=== PATIENT | female | born 1950 | race Caucasian/White ===

== ENCOUNTER 2016-11-09 17:42 | Emergency (ER) | payer MEDICARE, OTHER ==
[2014-07-14 14:16] VITALS: BMI 30.3
[~2016-11-09 17:42] MED LIST: ALBUTEROL0.63 MG/3 INH; ARMOUR THYROID60 M1 PO; CYCLOBENZAPRINE10 MG PO; DALIRESP500 MCG PO; ESTRADERM 0.10.1 MG TD; EXFORGE 5-160 M1 TAB PO; FIRST-PROG200 MG/SUP PO; GLUCOPHAGE500 MG PO; K-TAB10 MEQ PO; LASIX20 MG PO; LYRICA150 MG PO; MOBIC7.5 MG PO; NEXIUM40 MG PO; OXYBUTYNIN CHLOR5 MG PO; PERCOCET 10/3251 TA1; VENTOLIN HFA18 GM INH; ZOFRAN4 MG PO; ZYRTEC10 MG PO
[2016-11-09 19:10] LABS: BASOPHILS 0.1 % (0.0-2.0); EOSINOPHILS 0.1 % (0-7); HEMOGLOBIN 8.7 g/dL (12-16); IMMATURE GRANULOCYTES 1.8 % (0-5); MCH 22.8 pg (26.0-34.0); MCV 76.1 fL (80.0-100.0); MEAN PLATELET VOLUME 9.6 fL (7.4-10.4); MONOCYTES 6.4 % (2-11); NEUTROPHILS 81.6 % (40-80); RBC 3.81 10x6/uL (4.00-5.40); RDW 19.5 % (11.5-14.5); WBC 10.6 10x3/uL (4.8-10.8)
[2016-11-09 19:11] LABS: PLATELET COUNT 476 10x3/uL (130-400)
[2016-11-09 19:33] LABS: ALBUMIN 3.4 g/dL (3.4-5.0); ANION GAP 14.3 mmol/L (8-16); BILIRUBIN - TOTAL 0.2 mg/dL (0.2-1.3); CALCIUM 9.2 mg/dL (8.5-10.1); CARBON DIOXIDE 25.7 mmol/L (21.0-32.0); CREATININE - SERUM 1.2 mg/dL (0.6-1.3); PROTEIN - SERUM 6.5 g/dL (6.4-8.2)
[2016-11-09 20:52] LABS: AMYLASE - SERUM 86 U/L (25-115); CREATINE KINASE 40 UL (21-215); LIPASE 140 U/L (73-393); PRO BNP 267 pg/mL (0-125); THYROID STIMULATING HORMONE 0.01 uIU/mL (0.36-3.74); TROPONIN-I < 0.017 ng/mL (0.000-0.060)
== END 2016-11-09 21:28 | disposition home or self-care (01) ==
LOC: D.ER 17:42
PROVIDERS: Emergency Medicine; Family Medicine
DX: J44.1 Chronic obstructive pulmonary disease with (acute) exacerbation (principal); D64.9 Anemia, unspecified; K21.9 Gastro-esophageal reflux disease without esophagitis; I10 Essential (primary) hypertension; E87.6 Hypokalemia; E83.42 Hypomagnesemia; E03.9 Hypothyroidism, unspecified; E11.9 Type 2 diabetes mellitus without complications; K27.9 Peptic ulcer, site unspecified, unspecified as acute or chronic, without hemorrhage or perforation; M06.9 Rheumatoid arthritis, unspecified

== ENCOUNTER → 2017-03-24 14:31 | Outpatient (CLI) | payer MEDICARE ==
[2014-07-14 14:16] VITALS: BMI 30.3
== END | disposition home or self-care (01) ==
LOC: D.CT 14:30
DX: R05 Cough (principal)

== ENCOUNTER → 2017-04-19 13:36 | Outpatient (CLI) | payer MEDICARE, OTHER ==
[2014-07-14 14:16] VITALS: BMI 30.3
== END | disposition home or self-care (01) ==
LOC: D.MAMMO 10:45
DX: Z12.31 Encounter for screening mammogram for malignant neoplasm of breast (principal)

== ENCOUNTER 2018-06-15 15:05 | Inpatient (IN) | payer MEDICARE ==
[~2018-06-15] VITALS: Ht 144.8 cm; Wt 76.8 kg
[2018-06-15] VITALS (8 sets, daily range): BP systolic 99–145; BP diastolic 53–70; BMI 28.0
--- NOTE | ~2018-06-15 | OP ---
PATIENT NAME: MAGALI THOMPSON MEDICAL RECORD: [id number] :48 LOCATION:[id number] ADMISSION DATE:06/15/18 SURGEON: LEXIE PETERSON MD DATE OF OPERATION: 06/20/2018 PRINCIPAL DIAGNOSIS: Endoscopically unresectable cecal polyp. POSTOPERATIVE DIAGNOSES: Endoscopically unresectable cecal polyp with extensive intra-abdominal adhesions from a prior hernia repair. Also, the polypoid specimen was not present within the resected portions of the cecum. PROCEDURE: Attempted laparoscopic cecectomy with conversion to open right hemicolectomy through a mini laparotomy incision. SURGEON: Lexie Peterson MD [facility] AUTHOR: None. BLOOD LOSS: 100 cc. ANESTHESIA: General. COMPLICATIONS: None. The risks, possible complications and alternatives to the procedure were explained to the patient. She elects to proceed. The discussion specifically included, but was not limited to, bleeding requiring an emergency reoperation, infection, intestinal injury, clot, as well as a hernia occurrence. OPERATIVE COURSE: The patient was conveyed to the operating room electively on 06/20/2018. General anesthesia was induced by the anesthesia staff. The abdomen was sterilely prepped and draped. A small skin violet was accomplished in the left upper quadrant. A Veress needle was inserted through the skin violet into the peritoneal cavity. CO2 insufflation was begun. Once a sufficient pneumoperitoneum had been achieved, a 5-mm trocar was inserted through an incision in the right upper quadrant. I immediately identified that extensive adhesions were encountered. Two more 5-mm trocars were inserted in the right side of the abdomen. Utilizing the endoscopic morris as well as the endoscopic EnSeal device, I began taking down these adhesions to an omental patch. The adhesions consisted only of omental adhesions. I was able to take it down and the total adhesiolysis time was 25 minutes. I placed a 12-mm trocar through the incision at the umbilicus. There was no apparent injury to the bowels during this procedure. In order to facilitate more favorable approach to some of the adhesions, I placed two 5-mm trocars in the left side of the abdomen for a total of the 5-mm trocars. I incised along the right white line of Toldt. I folded the right colon medially. I took down some of the retroperitoneal attachments to the hepatic flexure. I mobilized the ileum with the endoscopic morris as there were some adhesions from the ileum to the pelvic side wall. At no time was there any injury to a major vascular structure or the right ureter. I was unable to identify an appendix. I grasped the cecum. I then stapled across the cecum utilizing an Endo-ONEL type stapler with a blue load. This portion of the cecum was then brought out through an endoscopic retrieval bag OPERATIVE REPORT [id number] MAGALI THOMPSON and I opened it up on the back table. I did not identify the polypoid specimen within this portion of the cecum. I then rerescrubbed and regowned. I then grasped the cecum and the colon laterally, across from the ileocecal valve. I then stapled across the colon here with the Endo-ONEL type stapler utilizing a blue load. I placed this within a bag retrieval device and withdrew it through the 12-mm trocar. I opened up the specimen on the back table. There was no polypoid specimen within the excised specimen. At this time, I elected to convert to an open procedure. Utilizing the Jens-Mariya suture closure device and 0 Vicryl suture, I closed the fascia at the 12-mm trocar site at the umbilicus. All the trocars were removed and the abdomen desufflated. A small incision was accomplished between the right costal margin and the anterior superior iliac spine on the right. Sharp transverse incision was accomplished through the skin and subcutaneous tissues. The external oblique aponeurosis was then opened along the direction of its fibers. I bluntly dissected down through the internal oblique and transversus abdominis muscles. The peritoneal cavity was entered sharply. I was able to deliver the ileum, right colon as well as the hepatic flexure of the transverse colon. I chose the extent of my resection to be in the distal ileum. A window was created in the mesentery of the small bowel. I stapled across the distal ileum with a ONEL-75 stapler. I then created a window in the mesentery of the proximal transverse colon. I stapled across the transverse colon with a ONEL-75 stapler. I then swept down the right ureter. I swept down the duodenum. At no time was there any apparent injury to the duodenum or the right ureter. The interpose mesentery between the enterotomy and the colotomy was taken down with the laparoscopic EnSeal device. The specimen was then sent to pathology after being opened on the back table. After opening it up on the back table, it appeared that the polyp was within this excised specimen. I placed the small bowel and transverse colon into apposition side by side and kept them in place with a row of 3-0 Vicryl sutures. A small enterotomy and small colotomy were accomplished. I advanced anvils of the ONEL-75 stapler and then fired. The resulting enterocolonic defect was closed with a single firing of the TA 60 stapler. The mesenteric rent was closed with a running #1 Vicryl. I irrigated and aspirated. The Austin retractor, which had been placed earlier through the mini laparotomy incision, was removed. Anastomosis was returned to the intra-abdominal compartment. I irrigated and aspirated in the right upper quadrant. There was no bleeding. The internal oblique and transversus abdominis muscles were closed with running #1 Vicryls. The external oblique aponeurosis was closed with a running #1 Vicryl. The subcutaneous tissues at the main operative site was closed with interrupted 3-0 Vicryls. The skin in the right upper quadrant incision was closed with a running intracuticular 3-0 Vicryl. The skin at the umbilicus was closed with interrupted 4-0 Vicryl Rapide sutures. The other trocar sites were closed with interrupted intracuticular 3-0 Vicryls. Benzoin and Steri-Strips were applied. The patient was then extubated and conveyed to the post-anesthesia care unit where she was in stable condition. TRANSINT:[id number] Voice Confirmation ID: [id number] DOCUMENT ID: [id number] OPERATIVE REPORT [id number] AMGALI THOMPSON, LEXIE MCKEON at 1717 CC: JIHAN MARQUEZ MD, AMENA FERGUSON and ERIN NAIR MD [id number] DICTATION DATE: 06/23/182303 YARN WEIGHER: 06/23/18 9837 ADM IN [place] [id number] [place] [id number]
[2018-06-15 15:48] LABS: BASOPHILS 0 % (0-2); EOSINOPHILS 0.1 % (0-7); HEMOGLOBIN 8.1 g/dL (12-16); MCHC 32.4 g/dL (31.0-37.0); MEAN PLATELET VOLUME 8.9 fL (7.4-10.4); MONOCYTES 4.3 % (2-11); NEUTROPHILS 81.6 % (40-80); RBC 3.52 10x6/uL (4.00-5.40); RDW 17.6 % (11.5-14.5); WBC 7.9 10x3/uL (4.8-10.8)
[2018-06-15 15:49] LABS: PLATELET COUNT 307 10x3/uL (130-400)
[2018-06-15 16:06] LABS: ALBUMIN 3.4 g/dL (3.4-5.0); ANION GAP 11.2 mmol/L (8-16); BILIRUBIN - TOTAL 0.18 mg/dL (0.2-1.3); CALCIUM 8.2 mg/dL (8.5-10.1); CARBON DIOXIDE 28.1 mmol/L (21.0-32.0); CREATININE - SERUM 1.6 mg/dL (0.6-1.3); POTASSIUM - SERUM 4.3 mmol/L (3.5-5.1); PROTEIN - SERUM 6.8 g/dL (6.4-8.2)
[2018-06-16] VITALS (23 sets, daily range): BP systolic 95–156; BP diastolic 45–95; BMI 36.6
[2018-06-16 05:11] LABS: APTT 28.7 SECONDS (22.8-39.4); INR 1.03 (0.85-1.17); PROTIME 13.1 SECONDS (11.6-15.0)
[2018-06-16 05:15] LABS: BASOPHILS 0.1 % (0-2); IMMATURE GRANULOCYTES 0.8 % (0-5); LYMPHOCYTES 33.4 % (15-50); MCH 25.3 pg (26.0-34.0); MCHC 33.5 g/dL (31.0-37.0); MEAN PLATELET VOLUME 9.3 fL (7.4-10.4); MONOCYTES 11.3 % (2-11); NEUTROPHILS 52.4 % (40-80); PLATELET COUNT 256 10x3/uL (130-400); RBC 4.19 10x6/uL (4.00-5.40); RDW 18.4 % (11.5-14.5); WBC 7.5 10x3/uL (4.8-10.8)
[2018-06-16 05:21] LABS: HEMATOCRIT 31.6 % (36.0-48.0); HEMOGLOBIN 10.6 g/dL (12-16); MCV 75.4 fL (80.0-100.0)
[2018-06-16 05:40] LABS: ANION GAP 10.8 mmol/L (8-16); BILIRUBIN - TOTAL 0.31 mg/dL (0.2-1.3); CREATININE - SERUM 1.3 mg/dL (0.6-1.3); POTASSIUM - SERUM 3.8 mmol/L (3.5-5.1); PROTEIN - SERUM 6.3 g/dL (6.4-8.2); T4 THYROXIN - FREE 0.77 ng/dL (0.76-1.46); THYROID STIMULATING HORMONE 0.13 uIU/mL (0.36-3.74)
[2018-06-16 13:09] LABS: HEMATOCRIT 33.6 % (36.0-48.0)
[2018-06-17] VITALS (18 sets, daily range): BP systolic 90–150; BP diastolic 56–105
[2018-06-17 04:03] LABS: BASOPHILS 0.1 % (0-2); EOSINOPHILS 2.8 % (0-7); HEMATOCRIT 32.9 % (36.0-48.0); HEMOGLOBIN 10.6 g/dL (12-16); IMMATURE GRANULOCYTES 0.6 % (0-5); LYMPHOCYTES 25.2 % (15-50); MCH 24.2 pg (26.0-34.0); MCHC 32.2 g/dL (31.0-37.0); MCV 75.1 fL (80.0-100.0); MEAN PLATELET VOLUME 9.5 fL (7.4-10.4); MONOCYTES 13.5 % (2-11); NEUTROPHILS 57.8 % (40-80); PLATELET COUNT 247 10x3/uL (130-400); RBC 4.38 10x6/uL (4.00-5.40); RDW 18.6 % (11.5-14.5); WBC 8.5 10x3/uL (4.8-10.8)
[2018-06-17 04:18] LABS: ALBUMIN 2.9 g/dL (3.4-5.0); ANION GAP 13.5 mmol/L (8-16); BILIRUBIN - TOTAL 0.24 mg/dL (0.2-1.3); CALCIUM 7.8 mg/dL (8.5-10.1); CARBON DIOXIDE 25.2 mmol/L (21.0-32.0); POTASSIUM - SERUM 3.7 mmol/L (3.5-5.1); PROTEIN - SERUM 6.2 g/dL (6.4-8.2)
[2018-06-18 04:51] VITALS: BP 99/56
[2018-06-18 06:06] LABS: BASOPHILS 0.1 % (0-2); EOSINOPHILS 1.7 % (0-7); HEMATOCRIT 34.9 % (36.0-48.0); HEMOGLOBIN 11.3 g/dL (12-16); IMMATURE GRANULOCYTES 0.3 % (0-5); LYMPHOCYTES 12.4 % (15-50); MCH 24.7 pg (26.0-34.0); MCHC 32.4 g/dL (31.0-37.0); MCV 76.2 fL (80.0-100.0); MONOCYTES 9.9 % (2-11); NEUTROPHILS 75.6 % (40-80); PLATELET COUNT 237 10x3/uL (130-400); RBC 4.58 10x6/uL (4.00-5.40); RDW 19.5 % (11.5-14.5)
[2018-06-18 06:07] LABS: WBC 15.9 10x3/uL (4.8-10.8)
[2018-06-18 06:32] LABS: ALBUMIN 3.1 g/dL (3.4-5.0); ANION GAP 12.4 mmol/L (8-16); BILIRUBIN - TOTAL 0.33 mg/dL (0.2-1.3); CALCIUM 8.3 mg/dL (8.5-10.1); CARBON DIOXIDE 27.1 mmol/L (21.0-32.0); CREATININE - SERUM 1.1 mg/dL (0.6-1.3); POTASSIUM - SERUM 3.5 mmol/L (3.5-5.1); PROTEIN - SERUM 6.3 g/dL (6.4-8.2)
[2018-06-18 08:07] VITALS: BP 108/53
[2018-06-18 12:32] VITALS: BP 130/55
[2018-06-18 12:46] VITALS: Ht 144.8 cm; Wt 76.8 kg
[2018-06-18 16:31] VITALS: BP 124/69
[2018-06-19 06:02] VITALS: BP 93/51
[2018-06-19 06:14] LABS: BASOPHILS 0.2 % (0-2); EOSINOPHILS 3.3 % (0-7); HEMATOCRIT 31.4 % (36.0-48.0); HEMOGLOBIN 10.5 g/dL (12-16); IMMATURE GRANULOCYTES 0.2 % (0-5); LYMPHOCYTES 14.9 % (15-50); MCH 25.1 pg (26.0-34.0); MCHC 33.4 g/dL (31.0-37.0); MCV 75.1 fL (80.0-100.0); MEAN PLATELET VOLUME 9.2 fL (7.4-10.4); NEUTROPHILS 68.4 % (40-80); PLATELET COUNT 228 10x3/uL (130-400); RBC 4.18 10x6/uL (4.00-5.40); RDW 19.6 % (11.5-14.5)
[2018-06-19 06:19] LABS: WBC 8.9 10x3/uL (4.8-10.8)
[2018-06-19 06:41] LABS: ALBUMIN 2.7 g/dL (3.4-5.0); BILIRUBIN - TOTAL 0.24 mg/dL (0.2-1.3); CARBON DIOXIDE 24.7 mmol/L (21.0-32.0); CREATININE - SERUM 1.1 mg/dL (0.6-1.3); PROTEIN - SERUM 6.3 g/dL (6.4-8.2)
[2018-06-19 07:27] LABS: ANION GAP 15.2 mmol/L (8-16); POTASSIUM - SERUM 2.9 mmol/L (3.5-5.1)
[2018-06-19 08:23] VITALS: BP 108/58
[2018-06-19 11:28] VITALS: BP 108/56
[2018-06-19 14:23] LABS: ERYTHROPOIETIN 8.5 mIU/mL (2.6-18.5)
[2018-06-19 15:54] VITALS: BP 107/46
[2018-06-20] VITALS (11 sets, daily range): BP systolic 98–129; BP diastolic 50–60
[2018-06-20 07:10] LABS: BASOPHILS 0.3 % (0-2); EOSINOPHILS 4.6 % (0-7); HEMATOCRIT 33.5 % (36.0-48.0); HEMOGLOBIN 10.7 g/dL (12-16); IMMATURE GRANULOCYTES 0.3 % (0-5); LYMPHOCYTES 23.8 % (15-50); MCH 24.5 pg (26.0-34.0); MCHC 31.9 g/dL (31.0-37.0); MCV 76.8 fL (80.0-100.0); MEAN PLATELET VOLUME 9.6 fL (7.4-10.4); MONOCYTES 16.9 % (2-11); NEUTROPHILS 54.1 % (40-80); PLATELET COUNT 227 10x3/uL (130-400); RBC 4.36 10x6/uL (4.00-5.40); RDW 20.3 % (11.5-14.5); WBC 6.9 10x3/uL (4.8-10.8)
[2018-06-20 07:49] LABS: ALBUMIN 2.7 g/dL (3.4-5.0); ANION GAP 15.7 mmol/L (8-16); BILIRUBIN - TOTAL 0.19 mg/dL (0.2-1.3); CALCIUM 8.5 mg/dL (8.5-10.1); CARBON DIOXIDE 24.2 mmol/L (21.0-32.0); POTASSIUM - SERUM 3.9 mmol/L (3.5-5.1); PROTEIN - SERUM 6.5 g/dL (6.4-8.2)
[2018-06-21] VITALS (8 sets, daily range): BP systolic 97–131; BP diastolic 47–68
[2018-06-21 05:26] LABS: BASOPHILS 0.1 % (0-2); EOSINOPHILS 0 % (0-7); HEMOGLOBIN 10.6 g/dL (12-16); IMMATURE GRANULOCYTES 0.3 % (0-5); LYMPHOCYTES 1.4 % (15-50); MCH 24.7 pg (26.0-34.0); MCHC 32.1 g/dL (31.0-37.0); MCV 76.9 fL (80.0-100.0); MEAN PLATELET VOLUME 9.4 fL (7.4-10.4); MONOCYTES 3.9 % (2-11); NEUTROPHILS 94.3 % (40-80); PLATELET COUNT 234 10x3/uL (130-400); RBC 4.29 10x6/uL (4.00-5.40); RDW 20.5 % (11.5-14.5); WBC 19.3 10x3/uL (4.8-10.8)
[2018-06-21 05:48] LABS: ANION GAP 17.9 mmol/L (8-16); CALCIUM 8.2 mg/dL (8.5-10.1); CARBON DIOXIDE 21.4 mmol/L (21.0-32.0); CREATININE - SERUM 1.1 mg/dL (0.6-1.3); POTASSIUM - SERUM 4.3 mmol/L (3.5-5.1)
[2018-06-22] MEDS ORDERED: BENADRYL25 MG PO (02:16)
[2018-06-22 04:00] VITALS: BP 90/40
[2018-06-22 06:26] LABS: BASOPHILS 0.1 % (0-2); EOSINOPHILS 0.4 % (0-7); HEMATOCRIT 29.2 % (36.0-48.0); HEMOGLOBIN 9.4 g/dL (12-16); IMMATURE GRANULOCYTES 0.2 % (0-5); LYMPHOCYTES 14.9 % (15-50); MCH 24.9 pg (26.0-34.0); MCHC 32.2 g/dL (31.0-37.0); MCV 77.5 fL (80.0-100.0); MEAN PLATELET VOLUME 9.6 fL (7.4-10.4); MONOCYTES 13.7 % (2-11); NEUTROPHILS 70.7 % (40-80); PLATELET COUNT 220 10x3/uL (130-400); RBC 3.77 10x6/uL (4.00-5.40); RDW 21.1 % (11.5-14.5)
[2018-06-22 06:27] LABS: WBC 12.1 10x3/uL (4.8-10.8)
[2018-06-22 06:36] LABS: CALCIUM 8.1 mg/dL (8.5-10.1); CARBON DIOXIDE 24.2 mmol/L (21.0-32.0); CREATININE - SERUM 1.2 mg/dL (0.6-1.3); POTASSIUM - SERUM 4.2 mmol/L (3.5-5.1)
[2018-06-22 08:24] VITALS: BP 133/55
[2018-06-22 13:46] VITALS: BP 143/55
[2018-06-22 20:55] VITALS: BP 102/46
[2018-06-23 04:40] VITALS: BP 102/55
[2018-06-23 07:21] LABS: BASOPHILS 0.2 % (0-2); EOSINOPHILS 2.6 % (0-7); HEMATOCRIT 27.8 % (36.0-48.0); HEMOGLOBIN 8.9 g/dL (12-16); IMMATURE GRANULOCYTES 0.4 % (0-5); LYMPHOCYTES 15.6 % (15-50); MCH 24.6 pg (26.0-34.0); MCV 76.8 fL (80.0-100.0); MEAN PLATELET VOLUME 9.8 fL (7.4-10.4); MONOCYTES 13.9 % (2-11); NEUTROPHILS 67.3 % (40-80); PLATELET COUNT 204 10x3/uL (130-400); RBC 3.62 10x6/uL (4.00-5.40); WBC 9.9 10x3/uL (4.8-10.8)
[2018-06-23 07:57] LABS: ANION GAP 15.1 mmol/L (8-16); CALCIUM 8.2 mg/dL (8.5-10.1); CARBON DIOXIDE 23.1 mmol/L (21.0-32.0); CREATININE - SERUM 1.1 mg/dL (0.6-1.3)
[2018-06-23 07:59] LABS: POTASSIUM - SERUM 3.2 mmol/L (3.5-5.1)
[2018-06-23 08:05] VITALS: BP 98/55
[2018-06-23 11:37] VITALS: BP 99/53
[2018-06-23 16:48] VITALS: BP 104/44
[2018-06-23 21:30] VITALS: BP 102/55
[2018-06-24 05:15] VITALS: BP 97/46
[2018-06-24 05:20] LABS: BASOPHILS 0.2 % (0-2); EOSINOPHILS 2.6 % (0-7); HEMATOCRIT 28.7 % (36.0-48.0); HEMOGLOBIN 9.2 g/dL (12-16); IMMATURE GRANULOCYTES 0.6 % (0-5); LYMPHOCYTES 11.2 % (15-50); MCH 24.6 pg (26.0-34.0); MCHC 32.1 g/dL (31.0-37.0); MCV 76.7 fL (80.0-100.0); MONOCYTES 12.3 % (2-11); NEUTROPHILS 73.1 % (40-80); PLATELET COUNT 236 10x3/uL (130-400); RBC 3.74 10x6/uL (4.00-5.40); RDW 20.6 % (11.5-14.5)
[2018-06-24 05:26] LABS: ANION GAP 12.9 mmol/L (8-16); CARBON DIOXIDE 24.5 mmol/L (21.0-32.0)
[2018-06-24 05:34] LABS: WBC 12.6 10x3/uL (4.8-10.8)
[2018-06-24 05:36] LABS: CREATININE - SERUM 1.4 mg/dL (0.6-1.3); POTASSIUM - SERUM 3.4 mmol/L (3.5-5.1)
[2018-06-24 20:17] LABS: APPEARANCE CLEAR (CLEAR); BILIRUBIN NEGATIVE (NEGATIVE); COLOR YELLOW (YELLOW); GLUCOSE NEGATIVE (NEGATIVE); KETONE NEGATIVE (NEGATIVE); NITRITE NEGATIVE (NEGATIVE); PROTEIN NEGATIVE (NEGATIVE); SPECIFIC GRAVITY 1.005 (1.005-1.020); UROBILINOGEN NORMAL (NORMAL)
[2018-06-24 21:50] VITALS: BP 91/59
[2018-06-25 05:15] VITALS: BP 99/46
[2018-06-25 05:44] LABS: BASOPHILS 0.2 % (0-2); EOSINOPHILS 3.4 % (0-7); HEMATOCRIT 30.8 % (36.0-48.0); IMMATURE GRANULOCYTES 0.6 % (0-5); MCH 25.1 pg (26.0-34.0); MCHC 32.5 g/dL (31.0-37.0); MCV 77.4 fL (80.0-100.0); MEAN PLATELET VOLUME 10.7 fL (7.4-10.4); MONOCYTES 12.5 % (2-11); NEUTROPHILS 73.3 % (40-80); PLATELET COUNT 233 10x3/uL (130-400); RBC 3.98 10x6/uL (4.00-5.40); RDW 20.9 % (11.5-14.5); WBC 10.7 10x3/uL (4.8-10.8)
[2018-06-25 06:17] LABS: ANION GAP 19.1 mmol/L (8-16); CALCIUM 8.5 mg/dL (8.5-10.1); CARBON DIOXIDE 25.7 mmol/L (21.0-32.0); CREATININE - SERUM 1.5 mg/dL (0.6-1.3); POTASSIUM - SERUM 3.8 mmol/L (3.5-5.1)
[2018-06-25 08:29] VITALS: BP 92/44
[2018-06-25 12:04] VITALS: BP 91/52
[2018-06-25 16:13] VITALS: BP 138/77
[2018-06-25 16:24] VITALS: BP 93/47
[2018-06-25 20:00] VITALS: BP 126/60
[2018-06-26 06:18] VITALS: BP 102/56
[2018-06-26 06:27] LABS: BASOPHILS 0.1 % (0-2); EOSINOPHILS 3.2 % (0-7); HEMATOCRIT 29.7 % (36.0-48.0); HEMOGLOBIN 9.6 g/dL (12-16); IMMATURE GRANULOCYTES 0.9 % (0-5); LYMPHOCYTES 9.6 % (15-50); MCH 24.7 pg (26.0-34.0); MCHC 32.3 g/dL (31.0-37.0); MCV 76.5 fL (80.0-100.0); MEAN PLATELET VOLUME 10.1 fL (7.4-10.4); MONOCYTES 11.3 % (2-11); NEUTROPHILS 74.9 % (40-80); PLATELET COUNT 276 10x3/uL (130-400); RBC 3.88 10x6/uL (4.00-5.40); RDW 20.9 % (11.5-14.5); WBC 9.3 10x3/uL (4.8-10.8)
[2018-06-26 06:36] LABS: ALBUMIN 2.2 g/dL (3.4-5.0); ANION GAP 12.9 mmol/L (8-16); BILIRUBIN - TOTAL 0.24 mg/dL (0.2-1.3); CALCIUM 8.6 mg/dL (8.5-10.1); CARBON DIOXIDE 25.4 mmol/L (21.0-32.0); CREATININE - SERUM 1.3 mg/dL (0.6-1.3); POTASSIUM - SERUM 3.3 mmol/L (3.5-5.1); PROTEIN - SERUM 6.8 g/dL (6.4-8.2)
[2018-06-26 08:05] VITALS: BP 110/56
[2018-06-26 13:21] VITALS: BP 109/61
[2018-06-26 15:53] VITALS: BP 109/61
[2018-06-26 20:00] VITALS: BP 97/53
[2018-06-27 03:49] VITALS: BP 95/47
[2018-06-27 06:34] LABS: BASOPHILS 0.2 % (0-2); EOSINOPHILS 2.6 % (0-7); HEMOGLOBIN 9.7 g/dL (12-16); IMMATURE GRANULOCYTES 0.9 % (0-5); LYMPHOCYTES 12.1 % (15-50); MCH 25.7 pg (26.0-34.0); MCHC 33.4 g/dL (31.0-37.0); MCV 76.9 fL (80.0-100.0); MEAN PLATELET VOLUME 10.5 fL (7.4-10.4); MONOCYTES 11.3 % (2-11); NEUTROPHILS 72.9 % (40-80); PLATELET COUNT 299 10x3/uL (130-400); RBC 3.77 10x6/uL (4.00-5.40); RDW 21.4 % (11.5-14.5); WBC 9.2 10x3/uL (4.8-10.8)
[2018-06-27 07:07] LABS: ALBUMIN 2.3 g/dL (3.4-5.0); ANION GAP 15.1 mmol/L (8-16); BILIRUBIN - TOTAL 0.21 mg/dL (0.2-1.3); CALCIUM 8.9 mg/dL (8.5-10.1); CARBON DIOXIDE 25.4 mmol/L (21.0-32.0); CREATININE - SERUM 1.1 mg/dL (0.6-1.3); POTASSIUM - SERUM 3.5 mmol/L (3.5-5.1); PROTEIN - SERUM 6.8 g/dL (6.4-8.2)
[2018-06-27 08:40] VITALS: BP 109/56
[2018-06-27 11:40] VITALS: BP 122/62
[2018-06-27 16:11] VITALS: BP 114/56
[2018-06-27 20:00] VITALS: BP 98/62
[2018-06-28 04:30] VITALS: BP 118/63
[2018-06-28 06:36] LABS: BASOPHILS 0.1 % (0-2); EOSINOPHILS 2.5 % (0-7); HEMATOCRIT 28.9 % (36.0-48.0); HEMOGLOBIN 9.5 g/dL (12-16); IMMATURE GRANULOCYTES 1.4 % (0-5); LYMPHOCYTES 9.4 % (15-50); MCH 25.4 pg (26.0-34.0); MCHC 32.9 g/dL (31.0-37.0); MCV 77.3 fL (80.0-100.0); MEAN PLATELET VOLUME 9.8 fL (7.4-10.4); MONOCYTES 8.6 % (2-11); PLATELET COUNT 278 10x3/uL (130-400); RBC 3.74 10x6/uL (4.00-5.40); WBC 10.6 10x3/uL (4.8-10.8)
[2018-06-28 07:32] LABS: ALBUMIN 2.4 g/dL (3.4-5.0); ANION GAP 13.8 mmol/L (8-16); BILIRUBIN - TOTAL 0.2 mg/dL (0.2-1.3); CALCIUM 9.2 mg/dL (8.5-10.1); CARBON DIOXIDE 25.1 mmol/L (21.0-32.0); CREATININE - SERUM 1.1 mg/dL (0.6-1.3); POTASSIUM - SERUM 3.9 mmol/L (3.5-5.1)
[2018-06-28 09:58] VITALS: BP 114/63
[2018-06-28 12:44] VITALS: BP 117/56
[2018-06-28] MEDS ORDERED: TUCKS TOPICAL (15:10)
[2018-06-28] MEDS ORDERED: Nicoderm [PBKC] TRANSDERM (15:10)
[2018-06-28 17:43] VITALS: BP 125/74
== END 2018-06-28 21:30 | disposition home health service (06) | DRG 329 ==
LOC: D.MS 15:05 → D.ICU 15:05 → D.SDCHOLD 06-17 13:30 → D.MS 06-17 17:55
PROVIDERS: Anesthesiology; Family Medicine; Internal Medicine Gastroenterology; Internal Medicine Hematology & Oncology; Internal Medicine Nephrology
PROC: 0DD78ZX Extraction of Stomach, Pylorus, Via Natural or Artificial Opening Endoscopic, Diagnostic (ICD-10-PCS; principal; 2018-06-16 13:30)
PROC: 0DDH8ZX Extraction of Cecum, Via Natural or Artificial Opening Endoscopic, Diagnostic (ICD-10-PCS; 2018-06-17)
PROC: 0DBL8ZZ Excision of Transverse Colon, Via Natural or Artificial Opening Endoscopic (ICD-10-PCS; 2018-06-17)
PROC: 0DTF0ZZ Resection of Right Large Intestine, Open Approach (ICD-10-PCS; 2018-06-20)
PROC: 05HB33Z Insertion of Infusion Device into Right Basilic Vein, Percutaneous Approach (ICD-10-PCS; 2018-06-27)
PROC: B54MZZA Ultrasonography of Right Upper Extremity Veins, Guidance (ICD-10-PCS; 2018-06-27)
DX: K92.1 Melena (principal); J18.9 Pneumonia, unspecified organism; D62 Acute posthemorrhagic anemia; K56.7 Ileus, unspecified; D12.0 Benign neoplasm of cecum; E11.9 Type 2 diabetes mellitus without complications; Z79.84 Long term (current) use of oral hypoglycemic drugs; J43.9 Emphysema, unspecified; K21.9 Gastro-esophageal reflux disease without esophagitis; F17.200 Nicotine dependence, unspecified, uncomplicated; E03.9 Hypothyroidism, unspecified; M06.9 Rheumatoid arthritis, unspecified; K64.4 Residual hemorrhoidal skin tags; Z53.31 Laparoscopic surgical procedure converted to open procedure; K29.70 Gastritis, unspecified, without bleeding; K44.9 Diaphragmatic hernia without obstruction or gangrene; K64.8 Other hemorrhoids

== ENCOUNTER 2018-09-13 13:45 | Inpatient (IN) | payer MEDICARE ==
[2018-09-13] VITALS (7 sets, daily range): BP systolic 114–136; BP diastolic 55–79; BMI 29.8
[~2018-09-13] VITALS: Ht 144.8 cm; Wt 62.5 kg
[~2018-09-13 13:45] MED LIST changes: +BENADRYL25 MG PO; +Nicoderm [PBKC] TRANSDERM; +TUCKS TOPICAL
[2018-09-13] MEDS ORDERED: ATROVENT HFA12.9 GM INH (14:10)
[2018-09-13] MEDS ORDERED: NORCO 10-325 TA1 TAB PO (14:11)
[2018-09-13] MEDS ORDERED: FLUTICASONE PRO16 GM NASAL (14:12)
[2018-09-13] MEDS ORDERED: ANORO ELLIPTA1 EACH INH (14:13)
[2018-09-13] MEDS ORDERED: KLONOPIN0.5 MG PO (14:14)
[2018-09-13] MEDS ORDERED: NIACIN250 M1 PO (14:15)
[2018-09-13] MEDS ORDERED: CYMBALTA60 MG PO (14:17)
[2018-09-13 14:18] LABS: BASOPHILS 0.2 % (0-2); EOSINOPHILS 0.5 % (0-7); HEMATOCRIT 34.2 % (36.0-48.0); HEMOGLOBIN 11.4 g/dL (12-16); IMMATURE GRANULOCYTES 0.6 % (0-5); LYMPHOCYTES 4.4 % (15-50); MCH 29.5 pg (26.0-34.0); MCHC 33.3 g/dL (31.0-37.0); MCV 88.6 fL (80.0-100.0); MEAN PLATELET VOLUME 10.2 fL (7.4-10.4); MONOCYTES 1.6 % (2-11); NEUTROPHILS 92.7 % (40-80); PLATELET COUNT 223 10x3/uL (130-400); RBC 3.86 10x6/uL (4.00-5.40); RDW 16.8 % (11.5-14.5); WBC 15.4 10x3/uL (4.8-10.8)
[2018-09-13] MEDS ORDERED: CLARITIN 10 MG10 MG PO (14:18)
[2018-09-13] MEDS ORDERED: PEPCID40 MG PO (14:19)
[2018-09-13] MEDS ORDERED: MULTI-DAY VITAM1 TAB PO (14:20)
[2018-09-13 14:21] LABS: ALBUMIN 3.2 g/dL (3.4-5.0); ALKALINE PHOSPHATASE 85 U/L (46-116); ALT (SGPT) 13 U/L (10-68); BILIRUBIN - TOTAL 0.22 mg/dL (0.2-1.3); CALC OSMOLALITY 283 mosm/kg (275-300); CALCIUM 8.8 mg/dL (8.5-10.1); CARBON DIOXIDE 25.1 mmol/L (21.0-32.0); CHLORIDE - SERUM 102 mmol/L (98-107); CREATININE - SERUM 1.4 mg/dL (0.6-1.3); GLUCOSE 165 mg/dL (74-106); POTASSIUM - SERUM 4.2 mmol/L (3.5-5.1); PROTEIN - SERUM 7.6 g/dL (6.4-8.2); SODIUM 139 mmol/L (136-145); UREA NITROGEN 19 mg/dL (7-18); eGFR NON AFRICAN AMERICAN 39 mL/min (90-120)
[2018-09-13] MEDS ORDERED: MAG-OX 400 MG400 MG PO (14:21)
[2018-09-13] MEDS ORDERED: CALCIUM PLUS PO (14:22)
[2018-09-13] MEDS ORDERED: PROBIOTIC (14:23)
[2018-09-13] MEDS ORDERED: DONEPEZIL HCL5 MG PO ×2 (14:24→20:14)
[2018-09-13 14:32] LABS: APTT 36.7 SECONDS (22.8-39.4); INR 1.16 (0.85-1.17); PROTIME 14.3 SECONDS (11.6-15.0)
[2018-09-13 14:33] LABS: CKMB 0.7 U/L (0.0-3.6); CREATINE KINASE 58 UL (21-215); MAGNESIUM - SERUM 2.1 mg/dL (1.8-2.4); THYROID STIMULATING HORMONE 0.41 uIU/mL (0.36-3.74); TROPONIN-I < 0.017 ng/mL (0.000-0.060)
[2018-09-13 17:46] LABS: APPEARANCE CLEAR (CLEAR); BILIRUBIN NEGATIVE (NEGATIVE); COLOR YELLOW (YELLOW); GLUCOSE NEGATIVE (NEGATIVE); KETONE NEGATIVE (NEGATIVE); NITRITE NEGATIVE (NEGATIVE); PROTEIN NEGATIVE (NEGATIVE); SPECIFIC GRAVITY 1.005 (1.005-1.020); UROBILINOGEN NORMAL (NORMAL)
[2018-09-13] MEDS ORDERED: VIBRAMYCIN 100100 MG PO (20:16)
[2018-09-14] VITALS: BP 151/79
[2018-09-14 04:00] VITALS: BP 122/53
[2018-09-14 08:49] VITALS: BP 148/61
[2018-09-14 09:10] LABS: BASOPHILS 0.1 % (0-2); EOSINOPHILS 0.1 % (0-7); HEMATOCRIT 33.1 % (36.0-48.0); IMMATURE GRANULOCYTES 0.9 % (0-5); LYMPHOCYTES 12.8 % (15-50); MCH 29.1 pg (26.0-34.0); MCHC 33.2 g/dL (31.0-37.0); MCV 87.6 fL (80.0-100.0); MEAN PLATELET VOLUME 10.3 fL (7.4-10.4); MONOCYTES 6.4 % (2-11); NEUTROPHILS 79.7 % (40-80); PLATELET COUNT 199 10x3/uL (130-400); RBC 3.78 10x6/uL (4.00-5.40); RDW 16.1 % (11.5-14.5)
[2018-09-14 09:12] LABS: WBC 10.5 10x3/uL (4.8-10.8)
[2018-09-14 09:24] LABS: ANION GAP 11.6 mmol/L (8-16); CALCIUM 9.2 mg/dL (8.5-10.1); CARBON DIOXIDE 29.2 mmol/L (21.0-32.0); CREATININE - SERUM 1.2 mg/dL (0.6-1.3); POTASSIUM - SERUM 3.8 mmol/L (3.5-5.1)
[2018-09-14 12:10] VITALS: Ht 144.8 cm; Wt 62.5 kg
[2018-09-14 12:23] VITALS: BP 138/75
[2018-09-14 17:00] VITALS: BP 129/52
[2018-09-14 19:54] VITALS: BP 117/56
[2018-09-15] VITALS: BP 96/43
[2018-09-15 04:54] LABS: BASOPHILS 0.1 % (0-2); EOSINOPHILS 0.8 % (0-7); HEMOGLOBIN 10.8 g/dL (12-16); IMMATURE GRANULOCYTES 1.4 % (0-5); LYMPHOCYTES 23.7 % (15-50); MCH 29.2 pg (26.0-34.0); MCHC 32.7 g/dL (31.0-37.0); MCV 89.2 fL (80.0-100.0); MEAN PLATELET VOLUME 10.4 fL (7.4-10.4); MONOCYTES 10.1 % (2-11); NEUTROPHILS 63.9 % (40-80); PLATELET COUNT 204 10x3/uL (130-400); RDW 16.5 % (11.5-14.5)
[2018-09-15 04:55] LABS: CALCIUM 8.6 mg/dL (8.5-10.1); CREATININE - SERUM 1.1 mg/dL (0.6-1.3)
[2018-09-15 04:57] LABS: WBC 7.4 10x3/uL (4.8-10.8)
[2018-09-15 08:45] VITALS: BP 136/63
[2018-09-15 11:53] VITALS: BP 147/64
[2018-09-15] MEDS ORDERED: AUGMENTIN 875-11 TAB PO (12:45)
== END 2018-09-15 14:54 | disposition home or self-care (01) | DRG 92 ==
LOC: D.ER 13:45 → D.EDHOLD 19:04 → OBSVTIME 19:04 → D.MS 19:45
PROVIDERS: Emergency Medicine; Internal Medicine Nephrology
DX: G92 Toxic encephalopathy (principal); J96.11 Chronic respiratory failure with hypoxia; T48.1X5A Adverse effect of skeletal muscle relaxants [neuromuscular blocking agents], initial encounter; Y92.9 Unspecified place or not applicable; J44.9 Chronic obstructive pulmonary disease, unspecified; M06.9 Rheumatoid arthritis, unspecified; D64.9 Anemia, unspecified; J32.0 Chronic maxillary sinusitis; G30.9 Alzheimer's disease, unspecified; F02.80 Dementia in other diseases classified elsewhere, unspecified severity, without behavioral disturbance, psychotic disturbance, mood disturbance, and anxiety; F32.9 Major depressive disorder, single episode, unspecified

== ENCOUNTER 2019-04-30 15:30 | Outpatient (CLI) | payer MEDICARE ==
[2018-09-14 12:10] VITALS: BMI 29.8
[~2019-04-30 15:30] MED LIST changes: +ANORO ELLIPTA1 EACH INH; +ATROVENT HFA12.9 GM INH; +AUGMENTIN 875-11 TAB PO; +CALCIUM PLUS PO; +CLARITIN 10 MG10 MG PO; +CYMBALTA60 MG PO; +DONEPEZIL HCL5 MG PO; +FLUTICASONE PRO16 GM NASAL; +KLONOPIN0.5 MG PO; +MAG-OX 400 MG400 MG PO; +MULTI-DAY VITAM1 TAB PO; +NIACIN250 M1 PO; +NORCO 10-325 TA1 TAB PO; +PEPCID40 MG PO; +PROBIOTIC; +VIBRAMYCIN 100100 MG PO
== END 2019-04-30 16:00 | disposition home or self-care (01) ==
LOC: D.MAMMO 15:30
PROVIDERS: ATTEND Family Medicine
DX: Z12.31 Encounter for screening mammogram for malignant neoplasm of breast (principal)